=== PATIENT | male | born 1950 ===

== ENCOUNTER → 2021-05-20 09:50 | Outpatient (CLI) | payer MEDICARE, OTHER, SELFPAY ==
[2021-05-20 21:46] LABS: COVID19 - ORCAS (NP or Nasal) Negative (Negative)
== END ==
PROVIDERS: PCP Family Medicine; Visit Provider Physician Assistant
DX: Z20.822 Contact with and (suspected) exposure to COVID-19 (principal); N39.0 Urinary tract infection, site not specified
CPT/HCPCS: C9803; U0003